=== PATIENT | female | born 1985 | race Caucasian/White ===

== ENCOUNTER 2016-08-14 20:44 | Inpatient (IN) | payer OTHER ==
[2016-08-14] MEDS ORDERED: ONDANSETRON 4 MG/2 ML VIAL IVP PRN (23:30)
[2016-08-15] MEDS ORDERED: CALCIUM CARBONATE 500 MG CHEWABLE TAB PO PRN
[2016-08-15] MEDS: LR 1,000 ML IV SCH ×2 (00:46→05:22)
[2016-08-15] MEDS ORDERED: TERBUTALINE SULFATE 1 MG/ML VIAL IV PRN (03:54)
[2016-08-15] MEDS ORDERED: LR 1,000 ML IV PRN (03:54)
[2016-08-15] MEDS ORDERED: EPSOM SALT 454 GM TP PRN (03:54)
[2016-08-15] MEDS ORDERED: OLIVE OIL 118 ML BTL MISC PRN (03:54)
[2016-08-15] MEDS ORDERED: OXYTOCIN/RINGERS LACTATE 1,000 ML IV PRN (03:54)
[2016-08-15] MEDS ORDERED: LIDOCAINE 1% 30 ML SDV SC PRN (03:54)
[2016-08-15] MEDS ORDERED: fentaNYL 100 MCG/2 ML INJ ONE ×2 (04:13→11:20)
[2016-08-15 04:14] LABS: % IMMATURE GRANULYOCYTES 1.4 % (0.0-1.1); ABSOLUTE IMMATURE GRANULOCYTES 0.27 10^3/uL (0.00-0.10); ADD DIFF? NO; ADD MORPH? NO; ADD SCAN? NO; ATYPICAL LYMPHOCYTE FLAG 0 (0-99); FRAGMENT RBC FLAG 0 (0-99); HEMATOCRIT 36.2 % (38.0-47.0); HEMOGLOBIN 12.3 g/dL (12.6-16.3); LEFT SHIFT FLG 30 (0-99); LIPEMIA HEMOLYSIS FLAG 90 (0-99); MEAN CELL HEMOGLOBIN 29.9 pg (27.9-34.1); MEAN CELL VOLUME 87.9 fL (81.5-99.8); MEAN PLATELET VOLUME 11.6 fL (8.7-11.7); PLATELET CLUMPS FLAG 0 (0-99); PLATELET COUNT 263 10^3/uL (150-400); RED BLOOD CELL COUNT 4.12 10^6/uL (4.18-5.33); RED CELL DISTRIBUTION WIDTH 12.8 % (11.5-15.2)
[2016-08-15] MEDS ORDERED: fentaNYL 2MCG/ML/BUP 0.1% RTU 100 ML BAG EP ONE (04:14)
[2016-08-15] MEDS ORDERED: BUPIVACAINE 0.25% 30 ML SDV ONE ×2 (04:14→11:20)
[2016-08-15] MEDS ORDERED: PHENYLEPHRINE HCL 100 MCG/ML SYR ONE (04:44)
[2016-08-15] MEDS ORDERED: PHENYLEPHRINE HCL 100 MCG/ML SYR IVP PRN (04:51)
[2016-08-15] MEDS ORDERED: fentaNYL 2MCG/ML/BUP 0.1% RTU 100 ML EP SCH (05:00)
[2016-08-15] MEDS ORDERED: LR 500 ML IV SCH (05:00)
[2016-08-15] MEDS ORDERED: TERBUTALINE SULFATE 1 MG/ML VIAL ONE (06:46)
[2016-08-15] MEDS ORDERED: LIDOCAINE 1% 30 ML SDV ONE (06:46)
[2016-08-15] MEDS ORDERED: AMMONIA AROMATIC 1 EACH AMP IH ONE (06:46)
[2016-08-15] MEDS ORDERED: OLIVE OIL 118 ML BTL ONE (06:46)
[2016-08-15] MEDS ORDERED: MISOPROSTOL 200 MCG TAB ONE (06:47)
[2016-08-15] MEDS ORDERED: OXYTOCIN 10 UNIT/ML VIAL ONE (06:47)
--- NOTE | 2016-08-15 09:07 | GHP ---
[f rep st] HISTORY AND PHYSICAL DATE OF ADMISSION: 08/14/2016 CHIEF COMPLAINT: Painful contractions. HISTORY OF PRESENT ILLNESS: Patient is a 31-year-old, 2, para 1, female at 40 weeks and 0 days who initially presented with painful contractions and was noted to be 1-2 cm, 70% effaced, and -2 station. She was rechecked 2-3 hours later and had no cervical change. At that time, she was offered the option for IV morphine to help with her pain and to give her a break for her painful early labor, and she desired to proceed. She received IV and IM morphine with Phenergan as well, and over the next 6 hours she then progressed to 2-3 cm, 80% effaced, and -2 station. At that time, she was reporting a significant increase in pain with her contractions, and she desired an epidural. She proceeded to get an epidural for pain relief. No other complaints. No leakage of fluid or vaginal bleeding and good movement reported. GBS negative. PAST OB HISTORY: History of spontaneous vaginal delivery, delivering a female , weighing 3870 g, at term. PAST MEDICAL HISTORY: Seasonal allergies, vitamin D deficiency. PAST SURGICAL HISTORY: [place] teeth removal. ALLERGIES: To amoxicillin and penicillin. MEDICATIONS: vitamin. OB PROBLEM LIST: Genetic screening all declined, vaccines administered during to include the flu shot and Tdap vaccine. LABS: Blood type AB positive, antibody screen negative, hematocrit 41 , Pap normal, varicella immune, rubella immune, RPR nonreactive, urine culture negative, hepatitis B surface antigen negative. HIV negative. Gonorrhea and chlamydia negative, 1-hour GTT in 28 weeks, hematocrit normal, GBS negative. PHYSICAL EXAMINATION: VITAL SIGNS: Blood pressure 115/64, heart rate 88, respiratory rate 16, temp 36.4 degrees Celsius. CHEST: Clear to auscultation bilaterally. GENERAL: No acute distress. Well-developed, well-nourished female. CHEST: Clear to auscultation bilaterally. CARDIOVASCULAR: Regular rate and rhythm. ABDOMEN: Gravid and nontender. PELVIC: Cervix 8 cm dilated , 80% effaced, soft and -1 station. Artificial rupture of membranes was completed with no complications and clear fluid noted. LABORATORY DATA: CBC white count of 19, hematocrit 36 and normal platelets. ASSESSMENT: Patient is a 31-year-old, 2, para 1 female at 40 weeks now and 1 day. Estimated gestational age: In active labor. PLAN: 1. status reassuring with category I heart rate tracing. 2. Labor progressing well spontaneously, anticipate spontaneous vaginal delivery. 3. Pain well controlled with epidural. 4. GBS negative. /[id number]/MODL MTDD
[2016-08-15] MEDS ORDERED: LR 500 ML IV PRN (10:55)
--- NOTE | 2016-08-15 10:55 | OBPROG ---
OBG Progress Note Assessment/Plan: Assessment: Pt is a 31 y/o at 40+1 weeks EGA in active labor - now with arrest of dilation Plan: 1) status reassuring w/ cat 1 FHT 2) Labor - no cervical change in the last 2 hours, will start pitocin for augmentation - all r/b/i/a reviewed, she agrees to proceed 3) Pain well controlled w/ IRIS 4) GBS neg 08/15/16 10:53 08/15/16 10:54 Subjective: Pt feels more pressure. Objective: 08/15/16 00:15 Patient ABO/Rh AB POSITIVE 08/15/16 00:15 - SVE Dilation (cm): 8 Effacement (%): 90 Station: -1 Current Contraction Pattern: Irregular FHR (bpm): 130 FHR Pattern Variability: Moderate FHR Category: 1 Amniotic Fluid Color: Clear ICD10 Worksheet Patient Problems: Problems Problem Status Onset Labor established Acute Elevated LFTs Acute Premature rupture of membranes in , antepartum Acute - ICD10 Problem Qualifiers (1) Labor established
[2016-08-15] MEDS ORDERED: OXYTOCIN/RINGERS LACTATE 500 ML IV SCH (11:00)
--- NOTE | 2016-08-15 12:47 | OBPROG ---
OBG Progress Note Assessment/Plan: Assessment: Pt is a 31 y/o at 40+1 weeks EGA in active labor - now with arrest of dilation Plan: 1) status reassuring w/ cat 1 FHT 2) Labor - after last SVE, nurse contacted me to let me know that she was nick every 1-2 minutes, so we held on starting pitocin hoping that her contraction pattern was improving. I just rechecked her, and no significant cervical change noted, so IUPC placed easily and will now start pitocin. Since IUPC placed, MVU's are around 150, so there is room for improvement. 3) Pain well controlled w/ IRIS 4) GBS neg 08/15/16 12:52 Subjective: Pt is more comfortable now w/ IRIS. Objective: 08/15/16 00:15 Patient ABO/Rh AB POSITIVE 08/15/16 00:15 - SVE Dilation (cm): 8 Effacement (%): 90 Station: -1 Current Contraction Pattern: Regular FHR (bpm): 130 FHR Pattern Variability: Moderate FHR Category: 1 Amniotic Fluid Color: Clear ICD10 Worksheet Patient Problems: Problems Problem Status Onset Labor established Acute Elevated LFTs Acute Premature rupture of membranes in , antepartum Acute - ICD10 Problem Qualifiers (1) Labor established
[2016-08-15] MEDS ORDERED: HYDROCODONE/APAP 5/325 TAB PO PRN (15:57)
[2016-08-15] MEDS ORDERED: HYDROCORTISONE 0.5% CREAM TP PRN (15:57)
[2016-08-15] MEDS ORDERED: SIMETHICONE 80 MG TAB CHEW PO PRN (15:57)
--- NOTE | 2016-08-15 15:57 | OBPROC ---
- Labor and Delivery Onset of Contractions Date: 08/14/16 Onset of Contractions Time: 05:00 Onset of Contractions Type: Spontaneous Rupture of Membranes Date: 08/15/16 Rupture of Membranes Time: 08:27 Rupture of Membranes Type: Artificial Amniotic Fluid Color: Clear Dilation Complete Time: 15:22 Delivery Type: Spontaneous Placenta Delivery Date: 08/15/16 Placenta Delivery Time: 15:36 Episiotomy/Laceration: Other (Specify) (small left tear at vaginal orifice 2cm long) Repair: 3-0, Vicryl EBL: 250 cc Complications: None - Medications Labor Augmentation/Induction Meds Used: Pitocin (augmentation at 8cm after no change for 4 hours) Anesthesia: Epidural - [place] Info Infant A Delivery Date: 08/15/16 Delivery Time: 15:31 Sex of Infant: Male Score (1 Min): 8 Score (5 Min): 9 (Delivered with two contractions, baby in MARVIN position, right shoulder anterior. No complications. Baby placed on maternal abdomen w / spontaneous cry, cord clamped x 2 and cut after 2 minutes. Placenta delivered easily and intact. Vaginal lac repaired (2cm at 0500 extending slightly into left labia), all hemostatic. Pitocin 30U/500 cc IV given. Good uterine tone and cervix intact. No complications)
[2016-08-15] MEDS: IBUPROFEN 600 MG TAB PO PRN ×2 (16:02→21:26)
[2016-08-16] MEDS: IBUPROFEN 600 MG TAB PO PRN ×4 (03:11→20:30)
--- NOTE | 2016-08-16 08:11 | SOAPPROG ---
SOAP Progress Note Assessment/Plan: Assessment: 31 y.o. s/p PPD #1. Recovering well with good pain control. . Plan: Routine care. consult. Anticipate discharge to home tomorrow. 08/16/16 08:08 Subjective: Reports feeling well with good pain control. infant well. Appropriate mood with good support system. Eating and drinking well without n/ v. Has been out of bed and ambulating well without vertigo. Objective: Vital Signs Temp Pulse Resp BP Pulse Ox 36.9 C 94 16 111/66 95 08/15/16 21:15 08/15/16 21:15 08/15/16 21:15 08/15/16 21:15 08/15/16 21:15 Laboratory Results 08/15/16 00:15 08/15/16 08/16/16 08/17/16 05:59 05:59 05:59 Output Total 250 Balance -250 - Time Spent With Patient Time Spent With Patient: 20 minutes - Pending Discharge Pending Discharge Within 24 Hours: Yes Pending Discharge Date: 08/17/16 Pending Discharge Time: 11:00 Physical Exam - Physical Exam General Appearance: WD/WN, alert, no apparent distress EENT: normal ENT inspection Neck: non-tender, full range of motion Respiratory: lungs clear, normal breath sounds Cardiac/Chest: regular rate, rhythm Abdomen: non-tender, soft Pelvic Exam: normal external exam Rectal: deferred Back: Normal inspection Skin: normal color, warm/dry Lymphatic: no adenopathy Extremities: normal range of motion, non-tender Neuro/Psych: alert, normal mood/affect, oriented x 3 ICD10 Worksheet Patient Problems: Problems Problem Status Onset Labor established Acute Elevated LFTs Acute Premature rupture of membranes in , antepartum Acute
[2016-08-16] MEDS: DOCUSATE SODIUM 100 MG CAP PO PRN ×2 (08:34→20:30)
[2016-08-16] MEDS: ACETAMINOPHEN 325 MG TAB PO PRN (12:19)
[2016-08-16 19:59] VITALS: RESP 16; O2SAT 96
[2016-08-17] MEDS: IBUPROFEN 600 MG TAB PO PRN ×2 (02:37→09:11)
[2016-08-17] MEDS: ACETAMINOPHEN 325 MG TAB PO PRN (04:48)
--- NOTE | 2016-08-17 07:56 | OBGCSDC ---
General Delivery Information - General Info : 2 Para: 2 Delivery Date: 08/15/16 Top Collar Maker: Katherine Hernandez Labs: Patient ABO/Rh AB POSITIVE 08/15/16 00:15 Hct 36.2 % (38.0-47.0) L 08/15/16 00:15 - Info Infant A Sex of Infant: Male Score (1 Min): 8 Score (5 Min): 9 (Delivered with two contractions, baby in MARVIN position, right shoulder anterior. No complications. Baby placed on maternal abdomen w / spontaneous cry, cord clamped x 2 and cut after 2 minutes. Placenta delivered easily and intact. Vaginal lac repaired (2cm at 0500 extending slightly into left labia), all hemostatic. Pitocin 30U/500 cc IV given. Good uterine tone and cervix intact. No complications) Vaginal - Diagnosis IUP (Weeks): 40 04/27 Labor: Spontaneous Rupture of Membranes Type: Artificial Amniotic Fluid Color: Clear Repair: 3-0, Vicryl Complications: None - Operations/Procedures Delivery Type: Spontaneous Procedures: Amniotomy Anesthesia: Epidural Medications: Pitocin - Hospital Course Antepartum: uncomplicated 2nd Intrapartum: spontaneous labor. augmented at 8 cm : routine pp care. rh pos, rub imm. s/p tdap and flu vaccines - Delivery EBL: 250 cc Anesthesia: Epidural Discharge Information - Discharge Information Complications: none Condition: Good Instruction/Follow Up: Six Weeks Discharge Physician/CNM: Alta Cameron Discharge Date: 08/17/16 Dictated: No
[2016-08-17] MEDS: DOCUSATE SODIUM 100 MG CAP PO PRN (09:11)
[2016-08-17 10:14] VITALS: BP 113/73; PULSE 86; TEMP 98
== END 2016-08-17 11:10 | disposition home or self-care (01) | DRG 775 ==
LOC: FLD 20:44 → OBSVTOIN 20:44 → FOB 08-15 17:52
PROVIDERS: ADMIT Obstetrics & Gynecology; ATTEND Obstetrics & Gynecology
DX: O62.1 Secondary uterine inertia (principal); O70.0 First degree perineal laceration during delivery; O48.0 Post-term pregnancy; Z67.30 Type AB blood, Rh positive; Z3A.41 41 weeks gestation of pregnancy; Z37.0 Single live birth
CPT/HCPCS: J2370; J2405; J2590; J3010; J3105